=== PATIENT | male | born 1960 | race Caucasian/White ===

== ENCOUNTER 2020-06-19 16:13 | Outpatient (REF) | payer BC, SELFPAY ==
[2020-06-20 11:32] LABS: COVID-19 RT-PCR UVMMC Result Negative (Negative)
== END 2020-06-19 16:14 | disposition home or self-care (01) ==
LOC: NCHCN 16:13
PROVIDERS: PCP Physician Assistant Medical; Visit Provider Internal Medicine
DX: Z20.828 Contact with and (suspected) exposure to other viral communicable diseases (principal)
CPT/HCPCS: U0003

== ENCOUNTER 2021-03-23 17:04 | Outpatient (REF) | payer SELFPAY ==
[2021-03-25 11:41] LABS: COVID-19 RT-PCR UVMMC Result Negative (Negative)
== END 2021-03-23 17:05 | disposition home or self-care (01) ==
LOC: NCHCN 17:04
PROVIDERS: PCP Physician Assistant Medical; Visit Provider Nurse Practitioner Family
DX: Z20.822 Contact with and (suspected) exposure to COVID-19 (principal)
CPT/HCPCS: U0003

== ENCOUNTER 2024-02-02 17:39 | Outpatient (REF) | payer OTHER, SELFPAY ==
--- OUTSIDE RECORDS SUMMARY | 2024-02-02 17:41 | XMS_ITS | Encounter Summary ---
Author Organization [facility] Address [address] [place] [address] Care Team Providers Care Cold Press Loader Name Role Phone Unavailable Primary Care Provider Unavailabl e Encounter Details Date Type Department Care Team (Late st Contact Info) Description 07/31/2023 Lab Requisition [facility] Pathology & Laboratory Medicine - [facility] [address] [place] [address] Outr Resulting Lab, Provider Social History Tobacco Use Types Packs/Day Years Used Date Smoking Tobacco: Never Assessed Sex and Gender Information Value Date Recorded Sex Assigned at Not on file Legal Sex Male 17:41 EST Gender Identity Not on file Sexual Orientation Not on file documented as of this encounter Plan of Treatment Not on file documented as of this encounter Procedures Procedure Name Priority Date/Time Associated Diagnosis Comments ANAPLASMA AND BABESIA TESTING BY PCR Routine 07/31/2023 15:35 EDT LYME AB Routine 07/31/2023 15:35 EDT documented in this encounter Results * ANAPLASMA AND BABESIA TESTING BY PCR (07/31/2023 15:35 EDT) Anaplasma phagocytophilum Negative Negative 08/01/2023 10:55 EDT [facility] Babesia Species Negative Negative 10:55 EDT [facility] Blood VENOUS BLOOD / Unknown 07/31/2023 15:35 EDT 07/31/2023 21:29 EDT Narrative [facility] - 08/01/2023 10:55 EDT This test was developed and its performance characteristics determined by [facility]. It has not been cleared or approved by the US Food and Drug Administration. FDA does not require this test to go through premarket FDA review. This test is used for clinical purposes. It should not be regarded as investigational or research. This laboratory is certified under the Clinical Laboratory Improvement Amendments (CLIA) as qualified to perform high complexity clinical laboratory testing. us Provider Outr Resulting Lab CHEMISTRY & BLOOD GA S ORDERABLES Final Result Performing Organization Address [facility]/ZIP Co de Phone Number [facility] [address] [place] [address] * LYME AB (07/31/2023 15:35 EDT) Lyme Ab Negative Negative 08/01/2023 11:47 EDT [facility] Blood VENOUS BLOOD / Unknown 07/31/2023 15:35 EDT 07/31/2023 21:29 EDT us Provider Outr Resulting Lab IMMUNOLOGY AND SEROL OGY ORDERABLES Final Result Performing Organization Address [facility]/ZIP Co de Phone Number [facility] [address] [place] [address] documented in this encounter Visit Diagnoses Not on filedocumented in this encounter
--- OUTSIDE RECORDS SUMMARY | 2024-02-02 17:41 | XMS_ITS | Referral Summary ---
Author Organization [facility] Address [address] [place] [address] Care Team Providers Care Manager Printing Name Role Phone Unavailable Primary Care Provider Unavailabl e Social History Tobacco Use Types Packs/Day Years Used Date Smoking Tobacco: Never Assessed Sex and Gender Information Value Date Recorded Sex Assigned at Not on file Legal Sex Male 17:41 EST Gender Identity Not on file Sexual Orientation Not on file Plan of Treatment Not on file
--- OUTSIDE RECORDS SUMMARY | 2024-02-02 17:41 | XMS_ITS | Encounter Summary ---
Author Organization [facility] Address [address] [place] [address] Care Team Providers Care Avionics Systems Integration Specialist Name Role Phone Unavailable Primary Care Provider Unavailabl e Encounter Details Date Type Department Care Team (Late st Contact Info) Description 03/24/2021 Lab Requisition [facility] Pathology & Laboratory Medicine - [facility] [address] [place] [address] Outr Resulting Lab, Provider Social History Tobacco [...] Procedure Name Priority Date/Time Associated Diagnosis Comments ZZCOVID-19 TEST [facility] PCR Today 03/23/2021 16:00 EST COVID-19 TESTING Routine 03/23/2021 16:0 0 EST documented in this encounter Results * COVID-19 TEST [facility] PCR (03/23/2021 16:00 EST) Swab 03/23/2021 16:0 0 EST 03/24/2021 16:15 EST us Provider Outr Resulting Lab MICROBIOLOGY - GENER AL ORDERABLES Final Result [facility] [address] [place] [address] * COVID-19 TESTING (03/23/2021 16:00 EST) COVID-19 rt-PCR Result Negative Negative 03/25/2021 11:36 EST [facility] Comment: This test has not been FDA cleared or approved. This test has been authorized by FDA under an EUA for use by authorized laboratories. This test has been authorized only for detection of nucleic acid from 2019-nCoV, not for any other viruses or pathogens. This test is only authorized for the duration of the declaration that circumstances exist justifying the authorization of emergency use of in vitro diagnostic tests for detection and/or diagnosis of 2019-nCoV under section 564(b)(1) of Act, 21 U.S.C ?? 360bbb-3(b) (1), unless the authorization is terminated or revoked sooner. Negative results do not preclude 2019-nCoV infection and should not be used as the sole basis for treatment or other patient management decisions. Negative results must be combined with clinical observations, patient history, and epidemiological information. Testing was performed using the corey SARS-CoV-2 assay ([employer] on the Corey 6800 System Performing Lab Corey 6800 [facility] Lab 03/25/2021 11:36 EST [facility] Swab 03/23/2021 16:0 0 EST 03/24/2021 16:15 EST us Provider Outr Resulting Lab MICROBIOLOGY - GENER AL ORDERABLES Final Result [facility] [address] [place] [address] documented in this encounter Visit Diagnoses Not on filedocumented in this encounter
--- OUTSIDE RECORDS SUMMARY | 2024-02-02 17:41 | XMS_ITS | Encounter Summary ---
Author Organization [facility] Address [address] [place] [address] Care Team Providers Care Roof Tiler Name Role Phone Unavailable Primary Care Provider Unavailabl e Encounter Details Date Type Department Care Team (Late st Contact Info) Description 06/19/[address] Lab Re[address] [facility] Pathology & [place] [address] Outr Resulting Lab, Provider Social History Tobacco [...] Priority Date/Time Associated Diagnosis Comments ZZCOVID-19 TEST [facility] PCR Today 06/19/2020 9:00 EDT COVID-19 TESTING Routine 06/19/2020 9:00 EDT documented in this encounter Results * COVID-19 TEST [facility] PCR (06/19/2020 9:00 EDT) Swab ENTIRE NASOPHARYNX / Unknown 06/19/2020 9:00 EDT 06/19/2020 19:41 EDT us Provider Outr Resulting Lab MICROBIOLOGY - GENER AL ORDERABLES Final Result [facility] [address] [place] [address] * COVID-19 TESTING (06/19/2020 9:00 EDT) COVID-19 rt-PCR Result Negative Negative 06/20/2020 11:27 EDT [facility] Comment: This test has not [...] clinical observations, patient history, and epidemiological information. Performed on the 36Kr Fusion instrument Performing Lab [place] [facility] Lab 06/20/2020 11:27 EDT [facility] Swab 06/19/2020 9:00 EDT 06/19/2020 19:41 EDT us Provider Outr Resulting Lab MICROBIOLOGY - GENER AL ORDERABLES Final Result [facility] [address] [place] [address] documented in this encounter Visit Diagnoses Not on filedocumented in this encounter
--- OUTSIDE RECORDS SUMMARY | 2024-02-02 17:41 | XMS_ITS | Continuity of Care Document ---
Author Organization [facility] Address [address] [place] [address] Care Team Providers Care Stitcher Standard Machine Name Role Phone Carlos Quesada Primary Care Physician Encounter [facility] Date(s): 05/02/23 - 05/02/[address] [address] Discharge Disposition: Home or Self Care Attending Physician: La Bianchi PA-C Admitting Physician: La Bianchi PA-C Immunizations Given and Recorded Vaccine Date Status Refusal Reason SARS-CoV-2 (COVID-19) mRNA-1273 vaccine 07/13/20 R ecorded SARS-CoV-2 (COVID-19) mRNA-1273 vaccine 06/15/20 R ecorded influenza virus vaccine, inactivated 12/13/10 Paolo rded influenza virus vaccine, inactivated 01/05/10 Paolo rded Results Orders for Microbiology Reports Name Date Throat Culture 05/02/23 Microbiology Reports TEST:Throat Culture STATUS:Order in Progress BODY SITE: SOURCE:Throat COLLECTED DATE/TIME:05/02/23 8:53 PM PRELIMINARY REPORT Normal Melvina at 24 hours Social History Social History Type Response Sex Male Patient Care team information Care Team Personnel Name: Carlos Quesada MD Position: Physician Member Role: Primary Care Physician Address: Address: [address] [place] [id number]
--- OUTSIDE RECORDS SUMMARY | 2024-02-02 17:41 | XMS_ITS | Continuity of Care Document ---
Author Organization [facility] Address [address] [place] [address] Care Team Providers Care Building Drafter Name Role Phone [facility] Primary Care Physician Encounter [facility] Date(s): 07/31/23 - 07/31/23 [facility] [address] [place] [address] Discharge Disposition: Home or Self Care Attending Physician: La Bianchi PA-C Admitting Physician: La Bianchi PA-C Referring Physician: La Bianchi PA-C Immunizations Given and Recorded Vaccine Date Status Refusal Reason SARS-CoV-2 (COVID-19) mRNA-1273 vaccine 07/13/20 R ecorded SARS-CoV-2 (COVID-19) mRNA-1273 vaccine 06/15/20 R ecorded influenza virus vaccine, inactivated 12/13/10 Paolo rded influenza virus vaccine, inactivated 01/05/10 Paolo rded Results Laboratory List Name Date .Manual Differential ([facility]CT[facility]) 07/31/23 Anaplasma and Babesia Testing by PCR, WB [facility] 07/31/23 CBC w/ Diff 07/31/23 Comprehensive Metabolic Panel 07/31/23 Lyme Antibody [facility] 07/31/23 Most recent to oldest [Reference Range]: 1 WBC [5.0-10.0 x10^3/mcL] 4.5 x10^3/mcL *LOW* (07/31/23 3:35 PM) RBC [4.6-6.0 x10^6/mcL] 5.5 x10^6/mcL (07/31/23 3:35 PM) Segs Man [40-75 %] 90 % *HI* (07/31/23 3:35 PM) Lymph Man [20-50 %] 3 % *LOW* (07/31/23 3:35 PM) Dickinson Man [2-15 %] 7 % (07/31/23 3:35 PM) Eos Man [1-6 %] 0 % *LOW* (07/31/23 3:35 PM) BUN [7-18 mg/dL] 19 mg/dL *HI* (07/31/23 3:35 PM) Glucose Level [74-106 mg/dL] 128 mg/dL *HI* (07/31/23 3:35 PM) Potassium Level [3.5-5.1 mmol/L] 4.1 mmo l/L (07/31/23 3:35 PM) MCV [80.0-96.0 fL] 84.3 fL (07/31/23 3:35 PM) RBC Morph Normal (07/31/23 3:35 PM) AST [15-37 unit/L] 59 unit/L *HI* (07/31/23 3:35 PM) ALT [16-63 unit/L] 66 unit/L *HI* (07/31/23 3:35 PM) MCHC [31.0-35.0 g/dL] 35.3 g/dL *HI* (07/31/23 3:35 PM) Sodium Level [136-145 mmol/L] 131 mmol/L *LOW* (07/31/23 3:35 PM) Hct [41.0-51.0 %] 46.7 % (07/31/23 3:35 PM) Calcium Level [8.5-10.1 mg/dL] 9.0 mg/dL (07/31/23 3:35 PM) Albumin Level [3.4-5.0 g/dL] 3.7 g/dL (07/31/23 3:35 PM) Protein Total [6.4-8.2 g/dL] 7.4 g/dL (07/31/23 3:35 PM) MCH [26.0-32.0 pg] 29.8 pg (07/31/23 3:35 PM) Bilirubin Total [0.2-1.0 mg/dL] 1.3 mg/d L *HI* (07/31/23 3:35 PM) Hgb [14.0-18.0 g/dL] 16.5 g/dL (07/31/23 3:35 PM) Alk Phos [46-146 unit/L] 88 unit/L (07/31/23 3:35 PM) Band Man [0-5 %] 0 % (07/31/23 3:35 PM) Platelets [130-450 x10^3/mcL] 81 x10^3/m cL *LOW* (07/31/23 3:35 PM) CO2 [21-32 mmol/L] 26 mmol/L (07/31/23 3:35 PM) eGFR Non-AA [>=60] 69 (07/31/23 3:35 PM) eGFR AA [>=60] 69 (07/31/23 3:35 PM) Chloride Level [98-107 mmol/L] 96 mmol/L *LOW* (07/31/23 3:35 PM) RDW-CV [11.5-14.5 %] 12.4 % (07/31/23 3:35 PM) Slide Review Man Diff (07/31/23 3:35 PM) Abs Neut Man 4.0 x10^3/mcL *NA* (07/31/23 3:35 PM) Creatinine Level [0.70-1.30 mg/dL] 1.19 mg/dL (07/31/23 3:35 PM) Lyme Ab [facility] [Negative] Negative 1 *NA* (07/31/23 3:35 PM) Baso Man [0-1 %] 0 % (07/31/23 3:35 PM) Anaplasma phagocytophilum [facility] [Negative] Negative *NA* (07/31/23 3:35 PM) Babesia species [facility] [Negative] Negative 2 *NA* (07/31/23 3:35 PM) 1Result Comment: Test performed [place] [address] 2Result Comment: This test was developed and its performance characteristics determined by [facility]. It has not been cleared or approved by the US Food and Drug Administration. FDA does not require this test to go through premarket FDA review. This test is used for clinical purposes. It should not be regarded as investigational or research. This laboratory is certified under the Clinical Laboratory Improvement Amendments (CLIA) as qualified to perform high complexity clinical laboratory testing. Test performed [place] [address] Social History Social History Type Response Sex Male Patient Care team information Care Team Personnel Name: Carlos Quesada MD Position: Physician Member Role: Primary Care Physician Address: Address: [address] [place] [address] [place] [address]- [place]
--- OUTSIDE RECORDS SUMMARY | 2024-02-02 17:41 | XMS_ITS | Clinical Summary ---
Author Organization [facility] Address [address] [place] [address] Care Team Providers Care Cigar Head Stringer Name Role Phone Unavailable Primary Care Provider Unavailabl e Social History Tobacco Use Types Packs/Day Years Used Date Smoking Tobacco: Never Assessed Sex and Gender Information Value Date Recorded Sex Assigned at Not on file Legal Sex Male 17:41 EST Gender Identity Not on file Sexual Orientation Not on file Plan of Treatment Health Maintenance Due Date Last Done Comments Hepatitis C Screen 1960 COVID-19 Vaccine (2023- season) 2023 RSV Immunization ( o r 60+ Years) (1 - 1-dose 75+ series) 08/13/2034
[2024-02-02 18:52] LABS: Abs Immature Grans 0.01 10^3/uL (0.0-0.06); Absolute Basophil Count 0.03 10^3/uL (0.0-0.2); Absolute Eosinophil Count 0.18 10^3/uL (0.0-0.7); Absolute Lymphocyte Count 1.79 10^3/uL (1.2-3.4); Absolute Monocyte Count 0.51 10^3/uL (0.1-0.8); Absolute Neutrophil Count 3.06 10^3/uL (1.2-6.7); Basophils % 0.5 %; Eosinophils % 3.2 %; HCT 47.5 % (40.0-50.0); HGB 16.2 g/dL (13.5-17.5); Immature Grans % 0.2 %; Lymphocytes % 32.1 %; MCH 29.7 pg (27.0-33.0); MCHC 34.1 % (32.0-36.0); MCV 87 fL (80-95); MPV 10.1 fL (8.0-11.0); Monocytes % 9.1 %; Neutrophils % 54.9 %; Platelet Count 152 10^3/uL (130-400); RBC 5.45 10^6/uL (4.36-5.78); RDW 12.4 % (11.8-14.1); RDW-SD 39.1 fL; WBC 5.58 10^3/uL (4.4-10.8)
[2024-02-02 19:12] LABS: ALT 37 U/L (16-63); AST 26 U/L (15-37); Alkaline Phosphatase 77 U/L (46-116); Anion Gap 7.6 mmol/L (3-11); BUN 15 mg/dL (7-18); Bilirubin, Total 0.58 mg/dL (0.2-1.0); CO2 29.4 mmol/L (21.0-32.0); CREATININE 1.2 mg/dL (0.70-1.30); Calcium 9.6 mg/dL (8.5-10.1); Chloride 104 mmol/L (98-107); Estimated GFR 67.53 (mL/min/1.73m2); Glucose 86 mg/dL (74-106); Sodium 141 mmol/L (136-145); Total Protein 7.7 g/dL (6.4-8.2)
== END 2024-02-02 17:40 | disposition home or self-care (01) ==
LOC: NCHCN 17:39
PROVIDERS: PCP Physician Assistant Medical; Visit Provider Physician Assistant
DX: R74.01 Elevation of levels of liver transaminase levels (principal)
CPT/HCPCS: 80053; 85025